=== PATIENT | female | born 1990 | race Caucasian/White ===

== ENCOUNTER 2018-09-17 02:55 | Emergency (ER) | payer OTHER ==
[~2018-09-17] VITALS: Ht 154.9 cm; Wt 93.2 kg
[2018-09-17 03:05] VITALS: BP 131/84
--- NOTE | 2018-09-17 03:17 | NUR ---
PT AMBULATED TO THE RESTROMM. PT TOLERATED WELL
--- NOTE | 2018-09-17 03:20 | NUR ---
Patient ambulated to bed 11. RN evaluating patient at bedside.
--- NOTE | 2018-09-17 03:25 | NUR ---
28/F PRESENTS WITH FAMILY, S/P SLIPPED FALL AT WORK 2 HRS AGO, PT STATED SHE WAS HOLDING ON TO SELF WITH L HAND. PT REPORTS 7/10 CONSTANT SHARP/BURNING L SHOUDER PAIN, RADIATING TO L FA. NO OBVIOUS ABNORMALITY ON L SHOULDER, SKIN PINK WARM AND DRY, +CMS. PT DENIES HEAD TRAUMA, LOC, CP, SOB, N/V. PT AOX4, GCS 15, RR EVEN AND UNLABORED. MED HX
[2018-09-17] MEDS ORDERED: ACETAMINOPHEN EXTRA STRENGTH 500 MG TAB PO ONE (03:35)
[2018-09-17 04:07] VITALS: BP 131/84
--- NOTE | 2018-09-17 04:07 | NUR ---
Patient discharged with v/s stable. Written and verbal after care instructions given and explained. Patient verbalized understanding. Ambulatory with steady gait. All questions addressed prior to discharge. Advised to follow up with PMD.
== END 2018-09-17 04:07 | disposition home or self-care (01) ==
LOC: MED 02:55
DX: S40.012A Contusion of left shoulder, initial encounter (principal); S40.022A Contusion of left upper arm, initial encounter; W19.XXXA Unspecified fall, initial encounter; Y93.89 Activity, other specified; Y92.69 Other specified industrial and construction area as the place of occurrence of the external cause; Y99.0 Civilian activity done for income or pay
CPT/HCPCS: 81002; 81025; 99282